=== PATIENT | female | born 1990 | race Caucasian/White ===

== ENCOUNTER 2019-11-01 19:43 | Emergency (ER) | payer OTHER ==
[~2019-11-01] VITALS: Ht 177.8 cm; Wt 106.6 kg
[~2019-11-01 19:43] MED LIST: IBUP800 PO; OXYACE5T PO; PRENATAL TABLE1 EAC1
[2019-11-01] MEDS ORDERED: IBUP800 PO (20:33)
== END 2019-11-01 20:41 | disposition home or self-care (01) ==
LOC: ER 19:43
DX: R07.81 Pleurodynia (principal); F41.9 Anxiety disorder, unspecified; Z87.891 Personal history of nicotine dependence
CPT/HCPCS: 99282

== ENCOUNTER 2021-05-28 21:57 | Inpatient (IN) | payer OTHER ==
[~2021-05-28] VITALS: Ht 175.3 cm; Wt 109.5 kg
[2021-05-29] MEDS ORDERED: PRENATAL TABLE1 EAC2 PO (00:02)
[2021-05-29 00:41] LABS: SARS-Cov-2 (COVID-19) PCR, MMC NEGATIVE (NEGATIVE)
[2021-05-29 01:19] LABS: BASOPHILS ABSOLUTE AUTO 0.02 K/mm3 (0.00-0.23); BASOPHILS PERCENT AUTO 0 % (0-2); EOSINOPHILS ABSOLUTE AUTO 0.07 K/mm3 (0.00-0.68); EOSINOPHILS PERCENT AUTO 1 % (0-6); Hematocrit 34.5 % (33.0-51.0); Hemoglobin 12.1 g/dL (11.5-16.0); IMMATURE GRAN ABSOLUTE AUTO 0.03 K/mm3 (0.00-0.10); IMMATURE GRAN PERCENT AUTO 0 % (0-1); LYMPHOCYTES ABSOLUTE AUTO 1.95 K/mm3 (0.84-5.20); LYMPHOCYTES PERCENT AUTO 21 % (21-46); MONOCYTES ABSOLUTE AUTO 0.59 K/mm3 (0.16-1.47); MONOCYTES PERCENT AUTO 6 % (4-13); Mean Corpuscular HGB Conc 35.1 g/dL (31.5-36.5); Mean Corpuscular Volume 97 fL (80-100); Mean Platelet Volume 10.3 fL (9.1-12.4); NEUTROPHILS ABSOLUTE AUTO 6.56 K/mm3 (1.96-9.15); NEUTROPHILS PERCENT AUTO 71 % (41-73); Platelet Count 169 K/mm3 (150-400); RDW Coefficient Variation 12.1 % (11.7-14.2); RDW Standard Deviation 43.3 fL (35.1-46.3); Red Blood Cell Count 3.56 M/mm3 (3.80-5.20); White Blood Cell Count 9.22 K/mm3 (4.00-11.30)
[2021-05-29 01:34] LABS: International Normalized Ratio 0.89; Prothrombin Time Results 9.7 Sec (9.7-11.5)
[2021-05-29] MEDS ORDERED: SERT50 PO (02:43)
--- NOTE | 2021-05-29 07:15 | NUR ---
ASSUMED CARE OF PT, PT TEARFUL, HER MOTHER AT HER SIDE FOR SUPPORT, INFORMED PT SHE CAN HAVE 1 ADDITIONAL SUPPORT PERSON COME IN IF SHE WOULD LIKE, PT REQUESTING TO GO OUTSIDE BEFORE NEXT DOSE OF CYTOTEC PLACED
--- NOTE | 2021-05-29 07:40 | NUR ---
PT OUT OF ROOM WITH MOTHER
--- NOTE | 2021-05-29 08:00 | NUR ---
PT BACK TO ROOM, MEAL COUPONS GIVEN PT TO GG TO [place] TO PICK BREAKFAST ITEMS
--- NOTE | 2021-05-29 11:23 | NUR ---
PATIENT AND HER MOTHER REQUESTING PASTORIAL CARE TO COME TO ROOM
--- NOTE | 2021-05-29 13:18 | NUR ---
PT UP AMBULATING DOWN TO [place] WITH HER 2 SUPPORT PERSONS
--- NOTE | 2021-05-29 18:01 | NUR ---
PT AMBULATING TO OUTSIDE AFTER DINNER WITH HER MOTHER
--- NOTE | 2021-05-29 19:00 | NUR ---
REPT TO Gary MCKEON RN PT SITTING UP IN BED VISITING WITH HER MOM STATES SHE IS FEELING MINIMAL CRAMPING
--- NOTE | 2021-05-30 07:00 | NUR ---
ASSUMED CARE REPT FROM A MIKE RN, PT SLEEPING SOUNDLY,
--- NOTE | 2021-05-30 07:47 | NUR ---
BREAKFAST TRAY PASSED PT STILL ASLEEP
--- NOTE | 2021-05-30 08:24 | NUR ---
AWAKE UP TO SHOWER, LINENS CHANGED
[2021-05-30 12:15] LABS: Glucose, Blood 97 mg/dL (70-99)
--- NOTE | 2021-05-30 14:30 | NUR ---
Lori Andino here for photos consents signed
--- NOTE | 2021-05-30 15:00 | NUR ---
rept to Chandler Aguila RN
[2021-05-30] MEDS ORDERED: IBU800 M1 PO (17:50)
[2021-05-30] MEDS ORDERED: Percocet 5-3251 EACH PO (17:50)
--- NOTE | 2021-05-30 18:00 | NUR ---
DISCHARGE INSTRUCTIONS REVIEWED AND SIGNED. PT DECLINES POST FOLLOW UP APPOINTMENT. PT DISCHARGED TO HOME.
[2021-06-01 12:10] LABS: RUBELLA ANTIBODIES, IGG 1.09 index (Immune >0.99)
== END 2021-05-30 18:05 | disposition home or self-care (01) | DRG 807 ==
LOC: OBS 21:57 → BC 22:02 → OBS 23:44 → BC 23:46
PROVIDERS: Obstetrics & Gynecology; ADMIT Nurse Practitioner Obstetrics & Gynecology
PROC: 10E0XZZ Delivery of Products of Conception, External Approach (ICD-10-PCS; principal; 2021-05-30)
PROC: 3E033VJ Introduction of Other Hormone into Peripheral Vein, Percutaneous Approach (ICD-10-PCS; 2021-05-30)
DX: O36.4XX0 Maternal care for intrauterine death, not applicable or unspecified (principal); Z37.1 Single stillbirth; Z3A.37 37 weeks gestation of pregnancy; O69.1XX0 Labor and delivery complicated by cord around neck, with compression, not applicable or unspecified; O70.1 Second degree perineal laceration during delivery
CPT/HCPCS: 36415; 59025; 76815; 82947; 85025; 85384; 85460; 85610; 85730; 86644; 86645; 86694; 86695; 86696; 86762; 86777; 86778; 86850; 86900; 86901; 88307; A9270; J2590; J3010; J7120; U0004

== ENCOUNTER → 2023-03-14 | Outpatient (CLI) | payer OTHER ==
[~2023-03-14] MED LIST changes: +IBU800 M1 PO; +PRENATAL TABLE1 EAC2 PO; +Percocet 5-3251 EACH PO; +SERT50 PO
[2023-03-15 10:10] LABS: Candida species (DNA Probe) Negative (NEGATIVE); G. vaginalis (DNA Probe) Positive (NEGATIVE); T. vaginalis (DNA Probe) Negative (NEGATIVE)
[2023-03-18 05:07] LABS: CHLAMYDIA BY NAA Negative (Negative); GONOCOCCUS BY NAA Negative (Negative); TRICH VAG BY NAA Negative (Negative)
== END | disposition home or self-care (01) ==
LOC: LAB SHORT 19:42 → LAB 19:42
PROVIDERS: Chiropractor
DX: Z72.51 High risk heterosexual behavior (principal)
CPT/HCPCS: 87480; 87491; 87510; 87591; 87660; 87661